=== PATIENT | female | born 1995 | race African-American/Black ===

== ENCOUNTER 2018-01-23 12:22 | Emergency (ER) | payer MEDICAID, OTHER ==
[~2018-01-23] VITALS: Ht 160 cm; Wt 67.1 kg
[~2018-01-23 12:22] MED LIST: CEPHALEXIN500 MG ORAL; IBUPROFEN600 MG ORAL; KEFLEX500 MG ORAL; NKM; PREDNISONE50 MG ORAL
[2018-01-23] MEDS ORDERED: Dexamethasone 4mg/ml vial IM ONE (12:45)
[2018-01-23 12:54] VITALS: BP 113/72
--- NOTE | 2018-01-23 12:58 | Emergency Room Report ---
History of Present Illness General Chief Complaint: Fever Source: Patient Present Illness Allergies: Coded Allergies: No Known Allergies (Unverified , 10/12/12) Patient History Last Menstrual Period: 01/12/18 Now: No Nursing Documentation-[facility] Past Medical History: No History, Except For Hx COPD: Yes - hx strep throat past two years Physical Exam Vital Signs Date Time Temp Pulse Resp B/P (MAP) Pulse Ox O2 Delivery O2 Flow Rate FiO2 01/23/18 12:29 103.0 110 23 113/72 97 Room Air 102.9 Medical Decision Making PA Attestation Dr. Marcum is my supervising Physician whom patient management has been discussed with. Diagnostic Impression: Primary Impression: Abscess, peritonsillar Additional Impression: Pharyngitis, acute Qualified Codes: J02.0 - Streptococcal pharyngitis Last Vital Signs Date Time Temp Pulse Resp B/P (MAP) Pulse Ox O2 Delivery O2 Flow Rate FiO2 01/23/18 12:42 103.0 01/23/18 12:29 110 23 113/72 97 Room Air Disposition: HOME, SELF-CARE Condition: Stable Patient Instructions: Fever, Adult, [id number], Peritonsillar Abscess, Easy- to-Read Additional Instructions: Take medications as directed. Follow up with a Primary Care Provider in 3-5 days, even if your symptoms have resolved. --Please review list of primary care clinics, if you do not already have a primary care provider Return sooner to ED if new symptoms occur, or current symptoms become worse. - Please note that this Emergency Department Report was dictated using [employer] office specialist technology software, occasionally this can lead to erroneous entry secondary to interpretation by the dictation equipment. Rula Robertson January 23, 2018 12:58
[2018-01-23] MEDS ORDERED: Clindamycin 600mg 50 ML IVPB ONE (13:15)
[2018-01-23] MEDS ORDERED: Lidocaine 2% Visc 15ml soln ORAL ONE (13:30)
[2018-01-23] MEDS ORDERED: Clindamycin 150mg cap ORAL ONE (13:45)
[2018-01-23 13:56] VITALS: BP 114/74
[2018-01-23] MEDS ORDERED: IBUPROFEN600 MG ORAL (14:09)
[2018-01-23] MEDS ORDERED: CLINDAMYCIN HC300 MG ORAL (14:09)
[2018-01-23] MEDS ORDERED: LIDOCAINE VISC100 ML ORAL (14:09)
[2018-01-23 14:25] VITALS: BP 114/74
--- NOTE | 2018-01-23 14:25 | Diagnostic Imaging Report ---
Indication: Neck pain Comparison: None Findings: Two views of the neck performed. There is no soft tissue swelling or mass identified. The epiglottis is unremarkable. Subglottic airway and retropharyngeal region appear clear. No radiopaque foreign body is identified. Impression: Negative evaluation of the neck.
== END 2018-01-23 14:28 | disposition home or self-care (01) ==
LOC: EMR 14:18
DX: J36 Peritonsillar abscess (principal); J02.9 Acute pharyngitis, unspecified; J44.9 Chronic obstructive pulmonary disease, unspecified
CPT/HCPCS: 70360; 96372; 99283; J1100; S0077

== ENCOUNTER 2019-09-15 18:00 | Emergency (ER) | payer MEDICAID, OTHER ==
[~2019-09-15] VITALS: Ht 165.1 cm; Wt 78.0 kg
[~2019-09-15 18:00] MED LIST changes: +CLINDAMYCIN HC300 MG ORAL; +LIDOCAINE VISC100 ML ORAL
[2019-09-15 18:02] VITALS: BP 121/71
[2019-09-15] MEDS ORDERED: Ketorolac 30mg Inj IV ONE (18:30)
[2019-09-15] MEDS ORDERED: Metoclopramide 10mg/2ml Inj IVP ONE (18:30)
--- NOTE | 2019-09-15 18:31 | NUR ---
ED Nurse Note: Patient ambulated into ER with a c/o abdominal pain and nausea x 1 week. Patient is aaox4, on room air, and with stable vital signs. No distress noted at this time.
--- NOTE | 2019-09-15 19:10 | NUR ---
ED Nurse Note: patient taken to US in stable condition
--- NOTE | 2019-09-15 19:20 | NUR ---
ED Nurse Note: Received report from JOSE G Herron.
[2019-09-15 19:22] LABS: APPEARANCE,URINE CLEAR; BILIRUBIN, URINE NEGATIVE (NEGATIVE); COLOR,URINE PALE YELLOW; GLUCOSE, URINE (UA) NEGATIVE (NEGATIVE); KETONES,URINE NEGATIVE (NEGATIVE); LEUKOCYTE ESTERASE ,URINE 1+ (NEGATIVE); NITRITE,URINE NEGATIVE (NEGATIVE); PH,URINE 6 (4.5-8.0); PROTEIN,URINE NEGATIVE (NEGATIVE); UROBILINOGEN,URINE NORMAL MG/DL (0.0-1.0)
[2019-09-15 19:23] LABS: EOSINOPHILS % (AUTO) 4.1 % (0.0-3.0); HEMATOCRIT 40.5 % (37.0-47.0); HEMOGLOBIN 13.6 G/DL (12.0-16.0); LYMPHOCYTES % (AUTO) 34.3 % (20.0-45.0); MEAN CORPUSCULAR VOLUME 90 FL (80-99); MONOCYTES % (AUTO) 9.9 % (1.0-10.0); NEUTROPHILS % (AUTO) 49.6 % (45.0-75.0); PLATELET COUNT 329 K/UL (150-450); RED CELL DISTRIBUTION WIDTH 11.3 % (11.6-14.8); WHITE BLOOD COUNT 9.9 K/UL (4.8-10.8)
[2019-09-15 19:31] LABS: INR 0.9 (0.9-1.1)
--- NOTE | 2019-09-15 19:38 | NUR ---
ED Nurse Note: Called lab to confirm new blood test for HCG, lab order confirmed.
[2019-09-15 19:46] LABS: ANION GAP 7 mmol/L (5-15); BLOOD UREA NITROGEN 9 mg/dL (7-18); CALCIUM 9.3 MG/DL (8.5-10.1); CARBON DIOXIDE 25 MMOL/L (21-32); CHLORIDE 102 MMOL/L (98-107); CREATININE 0.8 MG/DL (0.55-1.30); POTASSIUM 4.2 MMOL/L (3.5-5.1); SODIUM 134 MMOL/L (136-145)
[2019-09-15 19:51] LABS: ALANINE AMINOTRANSFERASE 22 U/L (12-78); ALBUMIN 3.8 G/DL (3.4-5.0); ALBUMIN/GLOBULIN RATIO 0.9 (1.0-2.7); ALKALINE PHOSPHATASE 90 U/L (46-116); ASPARTATE AMINO TRANSFERASE 14 U/L (15-37); BILIRUBIN,TOTAL 0.5 MG/DL (0.2-1.0)
--- NOTE | 2019-09-15 19:53 | NUR ---
ED Nurse Note: Patient returned from US in stable condition.
--- NOTE | 2019-09-15 20:25 | Diagnostic Imaging Report ---
Indication: Abdominal pain Technique: Grayscale and duplex Doppler imaging of the abdomen performed. Comparison: None Findings: The liver is unremarkable. Doppler interrogation of the main portal vein shows patency with hepatopedal, monophasic flow. There is no biliary ductal dilatation identified. Gallbladder is unremarkable. CBD is 5 mm. There demonstrated part of the pancreas, aorta and IVC show no definite abnormalities. Both kidneys appear unremarkable. There is no hydronephrosis. IMPRESSION: No acute findings
--- NOTE | 2019-09-15 20:31 | Emergency Room Report ---
History of Present Illness General Chief Complaint: Abdominal Pain Source: Patient Present Illness HPI 24-year-old female with no significant past medical history other than tobacco smoke who reports being G2, here complaining of 1 week of bilateral lower abdominal pain, as well as nausea. Denies vomiting, diarrhea and constipation. Denies fever and chills, headache and dizziness. Denies cough and congestion. Reports that she has been having some vaginal spotting the past few days. Last menstrual period was August 02, 2019. Patient is unsure whether she is or not. Has not done any in-home yet. Reports that for the past month she has not smoked a cigarette however smells like cigarette smoke, has not used marijuana, and has not drank alcohol. Patient appears to be stable with stable vital signs. Complains of urinary frequency and urgency. Denies all other vaginal discharge. Denies syncope, chest pain, shortness of breath, palpitation, no other associated symptoms. Reports that she last had a miscarriage 5 months ago when she was 13 weeks . Also previously had another miscarriage around the same time many years ago. Patient currently does have an [facility] that she goes to. 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 Denies calf tenderness, pleuritic chest pain , shortness of breath, recent use of control methods, or cancer history. Allergies: Coded Allergies: No Known Allergies (Unverified , 10/12/12) Patient History Past Medical History: see triage record Past Surgical History: unable to obtain Pertinent Family History: none Social History: Reports: smoking, drug use - marijuana Last Menstrual Period: 08/02/2019 Immunizations: UTD Reviewed Nursing Documentation: PMH: Agreed; PSxH: Agreed Nursing Documentation-PM Past Medical History: No History, Except For Hx Cardiac Problems: No Hx Hypertension: No Hx Pacemaker: No Hx Asthma: No - Bronchitis Hx COPD: No Hx Diabetes: No Hx Cancer: No Hx Gastrointestinal Problems: No Hx Dialysis: No History Of Psychiatric Problem: No Hx Neurological Problems: No Hx Cerebrovascular Accident: No Hx Seizures: No Review of Systems All Other Systems: negative except mentioned in HPI Physical Exam Vital Signs Date Time Temp Pulse Resp B/P (MAP) Pulse Ox O2 Delivery O2 Flow Rate FiO2 09/15/19 18:02 97.9 66 16 121/71 (88) 98 Room Air Sp02 EP Interpretation: reviewed, normal General Appearance: no apparent distress, alert, GCS 15, non-toxic Head: normocephalic, atraumatic Eyes: bilateral eye normal inspection, bilateral eye PERRL ENT: hearing grossly normal, normal pharynx, no angioedema, normal voice Neck: full range of motion, supple, no meningismus, supple/symm/no masses Respiratory: chest non-tender, lungs clear, normal breath sounds, no rhonchi, no respiratory distress, no retraction, speaking full sentences Cardiovascular #1: regular rate, rhythm, no edema, no murmur, normal capillary refill Cardiovascular #2: 2+ carotid (R), 2+ carotid (L), 2+ radial (R), 2+ radial (L) Gastrointestinal: normal bowel sounds, non tender, soft, no mass, no bruit, non -distended, no guarding, no hernia, no pulsatile mass, no rebound Rectal: deferred Genitourinary: no CVA tenderness Musculoskeletal: back normal, no calf tenderness, pelvis stable Neurologic: alert, motor strength/tone normal, oriented x3, sensory intact, responsive, speech normal Psychiatric: judgement/insight normal, memory normal, mood/affect normal, no suicidal/homicidal ideation Skin: no rash Lymphatic: no adenopathy Medical Decision Making PA Attestation All my diagnosis and treatment plans were reviewed ad discussed with my supervising physician Dr. Antonio Diagnostic Impression: Primary Impression: Spotting during in first trimester Additional Impressions: Abdominal pain during UTI (urinary tract infection) during ER Course 24-year-old female with no significant past medical history other than tobacco smoke who reports being G2, here complaining of 1 week of bilateral lower abdominal pain, as well as nausea. Denies vomiting, diarrhea and constipation. Denies fever and chills, headache and dizziness. Denies cough and congestion. Reports that she has been having some vaginal spotting the past few days. Last menstrual period was August 02, 2019. Patient is unsure whether she is or not. Has not done any in-home yet. Reports that for the past month she has not smoked a cigarette however smells like cigarette smoke, has not used marijuana, and has not drank alcohol. Patient appears to be stable with stable vital signs. Complains of urinary frequency and urgency. Denies all other vaginal discharge. Denies syncope, chest pain, shortness of breath, palpitation, no other associated symptoms. Reports that she last had a miscarriage 5 months ago when she was 13 weeks . Also previously had another miscarriage around the same time many years ago. Patient currently does have an [facility] that she goes to. 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 Denies calf tenderness, pleuritic chest pain , shortness of breath, recent use of control methods, or cancer history. Ddx considered but are not limited to: Threatened , ectopic , spontaneous , intrauterine with spotting, UTI during , appendicitis, pyelonephritis Vital signs: are WNL, pt. is afebrile H&PE are most consistent with: Abdominal pain and spotting during , UTI during ORDERS: UA, urine cx, urine test to first confirm whether patient is , beta-hCG, abdominal pelvic ultrasound was ordered prior to knowing patient is . However confirm . Abdominal pain order set vitamins, Reglan, Macrobid ED INTERVENTIONS: Reglan, NS bolus, very small dose of Toradol, DISCHARGE: At this time pt. is stable for d/c to home. Will provide printed patient care instructions, and any necessary prescriptions. Care plan and follow up instructions have been discussed with the patient prior to discharge. Gave patient a list of women's clinics also patient has an established [facility] as patient recently miscarried 5 months ago. Patient to follow-up with [facility] in 24 hours as here most likely will be close during the holidays. If increased bleeding, spotting, abdominal pain, syncope return to the emergency room immediately. Since patient is high risk for miscarriage patient to be under close observation of [facility]. CT/MRI/US Diagnostic Results CT/MRI/US Diagnostic Results : Imaging Test Ordered: Abdominal pelvis ultrasound Impression Intrauterine , single, 6 weeks 2 days, no free fluid, no subchorionic hemorrhage, no appendicitis, no gallbladder abnormality Last Vital Signs Date Time Temp Pulse Resp B/P (MAP) Pulse Ox O2 Delivery O2 Flow Rate FiO2 09/15/19 18:32 66 16 Room Air 09/15/19 18:02 97.9 121/71 98 Disposition: HOME, SELF-CARE Condition: Stable Scripts No.137/Iron/Folic Acd ( Vitamin Tablet) 1 Each Tablet 1 EACH PO DAILY, #30 TAB Prov: Yrn Spangler 09/15/19 Metoclopramide Hcl* (REGLAN*) 10 Mg Tablet 10 MG ORAL THREE TIMES A DAY, #20 TAB Prov: Yrn Spangler 09/15/19 Nitrofurantoin Monohyd/M-Cryst* (MACROBID 100 MG*) 100 Mg Capsule 100 MG ORAL EVERY 12 HOURS for 7 Days, #14 CAP Prov: Yrn Spangler 09/15/19 Referrals: [facility],REFERRING (PCP) Patient Instructions: Abdominal Pain During , and Urinary Tract Infection Additional Instructions: Take medication as directed, follow-up with your primary care provider, no visual 4 to 48 hours. If worsening symptoms increase vaginal bleeding cramping return to the emergency room. Avoid smoking, drug use, alcohol intake, consumption of raw fish and raw meat. Yrn Spangler Sep 15, 2019 20:31
[2019-09-15] MEDS ORDERED: REGLAN10 MG ORAL (20:33)
[2019-09-15] MEDS ORDERED: PRENATAL VITAM1 EA10 PO (20:33)
[2019-09-15] MEDS ORDERED: NITROFURANTOIN100 M2 ORAL (20:33)
--- NOTE | 2019-09-15 20:37 | NUR ---
ED Nurse Note: ER PA at bedside
[2019-09-15 20:42] VITALS: BP 125/82
--- NOTE | 2019-09-15 20:42 | NUR ---
ER DISCHARGE NOTE: Patient is cleared to be discharged per ERMD, pt is aox4, on room air, with stable vital signs. pt was given dc and prescription instructions, pt was able to verbalize understanding, pt id band and iv site removed intact without complications. pt is able to ambulate with steady gait. pt took all belongings. pt stable upon discharge.
--- NOTE | 2019-09-15 21:26 | Diagnostic Imaging Report ---
Indication: Pelvic pain positive Technique: Grayscale and duplex Doppler imaging of the pelvis performed utilizing a transabdominal scan and endovaginal scan. Comparison: None Findings: Single viable intrauterine demonstrated. Gestational age estimated at 6 weeks 2 days. heart tones demonstrated. Yolk sac noted. Small adjacent hypoechoic crescentic region likely a small subchorionic bleed demonstrated. Dominant right ovarian simple cyst noted measuring approximately 2.3 x 2.5 x 1.8 cm. The ovaries are otherwise unremarkable. There is no free fluid. IMPRESSION: Single living IUP 6 weeks 2 days gestational age. 2.5 cm right ovarian cyst. Suspected small subchorionic bleed
== END 2019-09-15 20:42 | disposition home or self-care (01) ==
LOC: EMR 18:30
DX: O26.851 Spotting complicating pregnancy, first trimester (principal); O23.41 Unspecified infection of urinary tract in pregnancy, first trimester; Z3A.01 Less than 8 weeks gestation of pregnancy; Z87.891 Personal history of nicotine dependence
CPT/HCPCS: 36415; 76700; 76801; 76830; 80053; 81003; 81025; 83690; 84702; 85025; 85610; 85730; 86850; 86900; 86901; 96361; 96374; 96375; J1885; J2765; J7030; S0028; Z7502; 99284

== ENCOUNTER 2020-08-16 15:14 | Emergency (ER) | payer MEDICAID ==
[~2020-08-16] VITALS: Ht 165.1 cm; Wt 83.9 kg
[~2020-08-16 15:14] MED LIST changes: +NITROFURANTOIN100 M2 ORAL; +PRENATAL VITAM1 EA10 PO; +REGLAN10 MG ORAL; +TAMIFLU75 MG ORAL
--- NOTE | 2020-08-16 15:31 | NUR ---
ED Nurse Note: pt presents to ED c/o nasal congestion x 1.5 weeks, pt denies cough or fever at this time. she also states that she has vagina discharge x 1month that is white in appearance
[2020-08-16 15:35] VITALS: BP 130/82
[2020-08-16 15:42] LABS: APPEARANCE,URINE CLEAR; BILIRUBIN, URINE NEGATIVE (NEGATIVE); COLOR,URINE PALE YELLOW; GLUCOSE, URINE (UA) NEGATIVE (NEGATIVE); KETONES,URINE NEGATIVE (NEGATIVE); LEUKOCYTE ESTERASE ,URINE 2+ (NEGATIVE); NITRITE,URINE NEGATIVE (NEGATIVE); PH,URINE 5 (4.5-8.0); PROTEIN,URINE NEGATIVE (NEGATIVE); UROBILINOGEN,URINE NORMAL MG/DL (0.0-1.0)
--- NOTE | 2020-08-16 15:59 | Emergency Room Report ---
History of Present Illness General Chief Complaint: Upper Respiratory Illness Source: Patient Present Illness HPI 24-year-old female with no significant past medical history here complaining of 1 week of sore throat and congestion along with sinus pressure. Denies any cough at this time. Also reports that she ran out of her asthma inhaler. And denies any shortness of breath at this time. Denies fever and chills, diarrhea, loss of taste and smell. Also reports that she has been having a fishy odor vaginal discharge for over a month. Patient got tested for chlamydia gonorrhea 2 weeks ago and tested negative. Reports that she has history of recurrences of bacterial vaginosis. Denies . Denies dysuria urinary frequency. 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 COVID-19 Screening: Negative COVID-19 COVID-19 Testing Source: 1 month ago Patient History Past Medical History: see triage record Past Surgical History: none Pertinent Family History: none Last Menstrual Period: 2 months ago Now: No Reviewed Nursing Documentation: PMH: Agreed; PSxH: Agreed Nursing Documentation-PMH Past Medical History: No History, Except For Hx Cardiac Problems: No Hx Hypertension: No Hx Pacemaker: No Hx Asthma: No - Bronchitis Hx COPD: No Hx Diabetes: No Hx Cancer: No Hx Gastrointestinal Problems: No - UTI Hx Dialysis: No Hx Neurological Problems: No Hx Cerebrovascular Accident: No Hx Seizures: No Review of Systems All Other Systems: negative except mentioned in HPI Physical Exam Vital Signs Date Time Temp Pulse Resp B/P (MAP) Pulse Ox O2 Delivery O2 Flow Rate FiO2 08/16/20 15:17 98.4 77 17 130/82 (98) 95 Room Air Sp02 EP Interpretation: reviewed, normal General Appearance: no apparent distress, alert, GCS 15, non-toxic Head: normocephalic, atraumatic Eyes: bilateral eye normal inspection, bilateral eye PERRL ENT: hearing grossly normal, normal pharynx, no angioedema, normal voice Neck: full range of motion, supple/symm/no masses Respiratory: chest non-tender, lungs clear, normal breath sounds, speaking full sentences Cardiovascular #1: regular rate, rhythm, no edema Cardiovascular #2: 2+ carotid (R), 2+ carotid (L), 2+ radial (R), 2+ radial (L), 2+ dorsalis pedis (R), 2+ dorsalis pedis (L) Gastrointestinal: normal bowel sounds, non tender, soft, non-distended, no guarding, no rebound Rectal: deferred Musculoskeletal: back normal Neurologic: alert, motor strength/tone normal, oriented x3, sensory intact, responsive, speech normal Psychiatric: judgement/insight normal, memory normal, mood/affect normal, no suicidal/homicidal ideation Skin: no rash Lymphatic: no adenopathy Medical Decision Making PA Attestation All my diagnosis and treatment plans were reviewed ad discussed with my supervising physician Dr. Ferraro Diagnostic Impression: Primary Impression: Sinusitis Additional Impressions: Bacterial vaginosis Medication refill ER Course 24-year-old female with no significant past medical history here complaining of 1 week of sore throat and congestion along with sinus pressure. Denies any cough at this time. Also reports that she ran out of her asthma inhaler. And denies any shortness of breath at this time. Denies fever and chills, diarrhea, loss of taste and smell. Also reports that she has been having a fishy odor vaginal discharge for over a month. Patient got tested for chlamydia gonorrhea 2 weeks ago and tested negative. Reports that she has history of recurrences of bacterial vaginosis. Denies . Denies dysuria urinary frequency. Ddx considered but are not limited to: strep pharyngitis, URI, tonsillitis, peritonsillar abscess, influneza, sinusitis Vital signs: are WNL, pt. is afebrile H&PE are most consistent with: Sinusitis, bacterial vaginosis, medication refill ORDERS: Azithromycin for sinusitis due to duration of patient being sick, prednisone, Flagyl ED INTERVENTIONS: None required at this time. DISCHARGE: At this time pt. is stable for d/c to home. Will provide printed patient care instructions, and any necessary prescriptions. Care plan and follow up instructions have been discussed with the patient prior to discharge. Take medication provider, if worsening symptoms return to the emergency room Last Vital Signs Date Time Temp Pulse Resp B/P (MAP) Pulse Ox O2 Delivery O2 Flow Rate FiO2 08/16/20 15:35 98.4 98 17 130/82 95 Room Air Disposition: HOME, SELF-CARE Condition: Stable Scripts Metronidazole* (FLAGYL*) 500 Mg Tablet 500 MG ORAL BID for 7 Days, #14 TAB Prov: Yrn Spangler 08/16/20 Albuterol Sulfate (VENTOLIN HFA) 18 Gm Hfa.aer.ad 2 PUFFS INH EVERY 6 HOURS, #18 GM 0 Refills Prov: Yrn Spangler 08/16/20 Prednisone* (PREDNISONE*) 20 Mg Tablet 40 MG ORAL DAILY for 5 Days, #10 TAB Prov: Yrn Spangler 08/16/20 Azithromycin* (ZITHROMAX*) 250 Mg Tablet 250 MG ORAL DAILY, #6 TAB 0 Refills Take two tables once daily for 1 day, then one tablet once daily for 4 days. Prov: Yrn Spangler 08/16/20 Referrals: NON PHYSICIAN (PCP) Patient Instructions: Bacterial Vaginosis, [id number], Sinusitis, Adult, [id number] Additional Instructions: Take medication as directed, follow-up with your primary care provider, if worsening symptoms return to emergency room Yrn Spangler Aug 16, 2020 15:59
[2020-08-16] MEDS ORDERED: PREDNISONE20 MG ORAL (16:00)
[2020-08-16] MEDS ORDERED: VENTOLIN HFA18 GM INH (16:00)
[2020-08-16] MEDS ORDERED: ZITHROMAX250 MG ORAL (16:00)
[2020-08-16] MEDS ORDERED: METRONIDAZOLE500 MG ORAL (16:00)
--- NOTE | 2020-08-16 16:09 | Diagnostic Imaging Report ---
EXAM: XR Chest, 1 View CLINICAL HISTORY: COUGH TECHNIQUE: Frontal view of the chest. COMPARISON: Chest radiograph on 04/16/2014 FINDINGS: Hardware: None. Lungs/pleura: Normal. No focal consolidation. No pleural effusion or pneumothorax. Heart/mediastinum: Normal. No cardiomegaly. Soft tissues: Unremarkable. Bones: No acute fracture. Upper abdomen: Normal. IMPRESSION: No acute disease identified.
[2020-08-16 16:10] VITALS: BP 130/82
--- NOTE | 2020-08-16 16:10 | NUR ---
ER DISCHARGE NOTE: Patient is cleared to be discharged per ERMD, pt is aox4, on room air, with stable vital signs. pt was given dc and prescription instructions, pt was able to verbalize understanding, pt id band removed without complications. pt is able to ambulate with steady gait. pt took all belongings.
== END 2020-08-16 16:25 | disposition home or self-care (01) ==
LOC: EMR 15:51
DX: J32.9 Chronic sinusitis, unspecified (principal); Z76.0 Encounter for issue of repeat prescription; N76.0 Acute vaginitis
CPT/HCPCS: 71045; 81003; 81025; 87086; Z7502; 99283